=== PATIENT | female | born 1950 | race Caucasian/White ===

== ENCOUNTER 2025-03-26 10:26 | Day surgery (SDC) | payer MEDICARE, OTHER, SELFPAY ==
[2025-03-26] MEDS: LACTATED RINGERS 1,000 ML 42 ML IV (10:45)
[2025-03-26 10:56] VITALS: BP 153/87; PULSE 97; RESP 16; TEMP 36.4; O2SAT 98
[2025-03-26] MEDS: ONDANSETRON 4 MG/2 ML INJ IV (11:04)
--- NOTE | 2025-03-26 11:18 | PM.PREOP ---
Pre-operative Note COVID-19 COVID-19 status: Not tested Interval Note History & Physical reviewed/Exam performed by Physician: Yes Changes to H&P: No ASA Class (for procedural sedation): II
--- NOTE | 2025-03-26 11:42 | P.OP.COLON_ITS ---
Operative Date/Time/Diagnoses Date of procedure: 03/26/25 Time of procedure: 11:42 Pre-op diagnosis: Positive Cologuard test Post-op diagnosis: same Procedure & Clinicians Study performed: Colonoscopy Same procedure(s) as scheduled: Yes Surgeon: Amos Murray Anesthesia Type: MAC +/- Procedure Notes Procedure in detail: Surgeon: Amos Murray MD Anesthesia: Michelle Yan DIRECTOR [employer] Procedure: The patient was brought to the endoscopy suite, placed in left lateral decubitus position. The patient was connected to monitoring devices. A time-out was performed. Sedation was administered. Once the patient was adequately sedated, a digital rectal exam was performed and was normal. The scope was then inserted and advanced to the cecum where the appendiceal orifice was identified and photographed. The scope was then slowly withdrawn over greater than 6 minutes. The mucosa was thoroughly inspected. No abnormalities were identified. The scope was retroflexed in the rectum. Mild internal hemorrhoids were noted. The scope was straightened and removed. The patient was awakened and brought to recovery. Scope withdrawal time: 6 minutes Sedation time: 11 minutes EBL: 0 Findings: Normal colon, mild internal hemorrhoids Post-procedure Disposition: PACU
[2025-03-26 11:45] VITALS: BP 118/60; PULSE 61; RESP 14; TEMP 36.4; O2SAT 98
[2025-03-26 11:50] VITALS: BP 118/60; PULSE 67; RESP 16; O2SAT 96
[2025-03-26 11:55] VITALS: BP 111/56; PULSE 68; RESP 16; O2SAT 95
[2025-03-26 11:57] VITALS: BP 110/60; PULSE 63; RESP 14; TEMP 36.4; O2SAT 95
== END 2025-03-26 12:19 | disposition home or self-care (01) ==
PROVIDERS: PCP Physician Assistant Medical; Referring Provider Surgery; Visit Provider Surgery
PROC: 0DJD8ZZ Inspection of Lower Intestinal Tract, Via Natural or Artificial Opening Endoscopic (ICD-10-PCS; CPT 45378; principal; 2025-03-26 11:15)
DX: Z12.11 Encounter for screening for malignant neoplasm of colon (principal); R19.5 Other fecal abnormalities; K64.8 Other hemorrhoids
CPT/HCPCS: G0121; J2405; J2704